=== PATIENT | male | born 1950 | race Caucasian/White ===

== ENCOUNTER 2024-01-27 09:52 | Outpatient (CLI) | payer MEDICARE | END 2024-01-27 09:53 | disposition home or self-care (01) | LOC: CSHMRI 09:52 | PROVIDERS: ATTEND Psychiatry & Neurology Neurology | DX: R41.3 Other amnesia (principal); I67.89 Other cerebrovascular disease; G31.9 Degenerative disease of nervous system, unspecified | CPT/HCPCS: 70553; 76376 ==